=== PATIENT | male | born 1940 | race Caucasian/White ===

== ENCOUNTER → 2016-11-03 | Outpatient (CLI) | payer MEDICARE, OTHER ==
[~2016-11-03] VITALS: Ht 175.3 cm; Wt 121.6 kg
[~2016-11-03] MED LIST: ADV100INH INH; ALTA1CAP2 PO; ASPI81CH PO; BISO10TA PO; DEMA20TA6 PO; FIBEPOW PO; KLOR1CAP PO; NS 1,000 ML IV SCH; PROPOFOL 200 MG/20 ML VIAL As Ordered ONE; PROTPAK PO; ROSU10TA PO; TEST5GEL TOP; VIAG100T PO
--- NOTE | 2016-11-03 10:38 | ROOR ---
Patient Name: Jesus Gomez Procedure Date: 11/03/2016 10:20 AM Date of : 1940 Age: 76 Room: [facility] Gender: Male Note Status: Finalized Procedure: Colonoscopy Indications: Screening for colorectal malignant neoplasm Providers: Alvaro Frank Jr, MD Referring MD: Dustin Ferrer MD Requesting Provider: Medicines: Propofol per Anesthesia Complications: No immediate complications. Procedure: Pre-Anesthesia Assessment: - Prior to the procedure, a History and Physical was performed, and patient medications and allergies were reviewed. The patient is competent. The risks and benefits of the procedure and the sedation options and risks were discussed with the patient. All questions were answered and informed consent was obtained. Patient identification and proposed procedure were verified by the physician and the nurse in the pre-procedure area and in the procedure room. Mental Status Examination: alert and oriented. Airway Examination: normal oropharyngeal airway and neck mobility. Respiratory Examination: clear to auscultation. CV Examination: normal. ASA Grade Assessment: II - A patient with mild systemic disease. After reviewing the risks and benefits, the patient was deemed in satisfactory condition to undergo the procedure. The anesthesia plan was to use moderate sedation / analgesia (conscious sedation). Immediately prior to administration of medications, the patient was re-assessed for adequacy to receive sedatives. The heart rate, respiratory rate, oxygen saturations, blood pressure, adequacy of pulmonary ventilation, and response to care were monitored throughout the procedure. The physical status of the patient was re-assessed after the procedure. The Colonoscope was introduced through the anus and advanced to the cecum, identified by appendiceal orifice and ileocecal valve. The colonoscopy was performed without difficulty. The patient tolerated the procedure well. The quality of the bowel preparation was adequate and good. Findings: The perianal and digital rectal examinations were normal. Pertinent negatives include normal sphincter tone, no palpable rectal lesions and no anal lesion or abnormality was detected. Multiple small and large-mouthed diverticula were found in the sigmoid colon. Three polyps were found in the sigmoid colon, ascending colon and cecum. The polyps were diminutive in size. These polyps were removed with a jumbo cold forceps. Resection and retrieval were complete. The rectum, recto-sigmoid colon, descending colon, transverse colon, appendiceal orifice and ileocecal valve appeared normal. Impression: - Diverticulosis in the sigmoid colon. - Three diminutive polyps in the sigmoid colon, in the ascending colon and in the cecum, removed with a jumbo cold forceps. Resected and retrieved. - The rectum, recto-sigmoid colon, descending colon, transverse colon, appendiceal orifice and ileocecal valve are normal. Recommendation: - Discharge patient to home (ambulatory). - Repeat colonoscopy in 5-10 years for surveillance based on pathology results. Alvaro Frank MD Alvaro Frank Jr, MD 11/03/2016 10:38:05 AM This report has been signed electronically. Number of Addenda: 0 Note Initiated On: 11/03/2016 10:20 AM Estimated Blood Loss: Estimated blood loss: none.
[2016-11-03 10:55] VITALS: BP 124/71
== END | disposition home or self-care (01) ==
LOC: M OPP 09:20
PROVIDERS: ATTEND Surgery
DX: Z12.11 Encounter for screening for malignant neoplasm of colon (principal); D12.2 Benign neoplasm of ascending colon; D12.5 Benign neoplasm of sigmoid colon; I25.10 Atherosclerotic heart disease of native coronary artery without angina pectoris; E78.00 Pure hypercholesterolemia, unspecified; J45.909 Unspecified asthma, uncomplicated; I48.91 Unspecified atrial fibrillation; N40.0 Benign prostatic hyperplasia without lower urinary tract symptoms; M19.90 Unspecified osteoarthritis, unspecified site; I50.9 Heart failure, unspecified; G47.30 Sleep apnea, unspecified; R06.83 Snoring; R12 Heartburn; K57.92 Diverticulitis of intestine, part unspecified, without perforation or abscess without bleeding; R23.3 Spontaneous ecchymoses; Z95.0 Presence of cardiac pacemaker; Z88.8 Allergy status to other drugs, medicaments and biological substances; Z79.82 Long term (current) use of aspirin; Z79.51 Long term (current) use of inhaled steroids; Z79.899 Other long term (current) drug therapy

== ENCOUNTER → 2017-02-15 | Outpatient (CLI) | payer MEDICARE, OTHER ==
[~2017-02-15] MED LIST changes: +CRES10TA32 PO; -NS 1,000 ML IV SCH; -PROPOFOL 200 MG/20 ML VIAL As Ordered ONE; -ROSU10TA PO
[2017-02-15 13:26] LABS: MEAN CORPUSCULAR HEMOGLOBIN 29.9 pg (27.0-33.0); MEAN CORPUSCULAR HGB CONC 32.8 g/dl (32.0-36.5); MEAN CORPUSCULAR VOLUME 91.3 fl (80.0-96.0); RED CELL DISTRIBUTION WIDTH 13.6 % (11.5-14.5); WHITE BLOOD COUNT 6.2 K/mm3 (4.0-10.0)
[2017-02-15 13:43] LABS: ALBUMIN 3.6 GM/DL (3.2-5.2); ALBUMIN/GLOBULIN RATIO 1.29 (1.00-1.93); ALKALINE PHOSPHATASE 80 U/L (45-117); ALT/SGPT 20 U/L (12-78); ANION GAP 3 MEQ/L (8-16); AST/SGOT 19 U/L (15-37); BLOOD UREA NITROGEN 16 MG/DL (7-18); CARBON DIOXIDE LEVEL 33 MEQ/L (21-32); CHLORIDE LEVEL 105 MEQ/L (98-107); CHOLESTEROL LEVEL 149 MG/DL (<200); CREATININE FOR GFR 0.89 MG/DL (0.70-1.30); FREE T4 1.06 NG/DL (0.76-1.46); GLOMERULAR FILTRATION RATE > 60.0 (>42); GLUCOSE, FASTING 100 MG/DL (83-110); SODIUM LEVEL 141 MEQ/L (136-145); TOTAL PROTEIN 6.4 GM/DL (6.4-8.2); TRIGLYCERIDES LEVEL 86 MG/DL (<150)
== END ==
LOC: M WUC 09:22
PROVIDERS: ATTEND Family Medicine
DX: E29.1 Testicular hypofunction (principal); I11.0 Hypertensive heart disease with heart failure; E78.2 Mixed hyperlipidemia

== ENCOUNTER → 2017-03-28 | Outpatient (CLI) | payer MEDICARE, OTHER ==
--- NOTE | 2017-03-28 10:09 | REP ---
CHEST X-RAY: Two views. HISTORY: Preoperative testing. Comparison chest x-ray July 10, 2009. FINDINGS: A bipolar pacemaker remains in the right heart via the left side. The heart is mildly enlarged. This is unchanged. There is some linear fibrosis in the left base. Pleural angles are sharp. Lung dia are otherwise clear. The aorta is calcific and tortuous. There are degenerative changes in the thoracic spine. IMPRESSION: Mild cardiomegaly with pacemaker. Linear fibrosis left base. Otherwise no acute disease. Signed by Jacky Jauregui MD 03/28/2017 03:43 P
[2017-03-28 13:41] LABS: ANION GAP 6 MEQ/L (8-16); BLOOD UREA NITROGEN 24 MG/DL (7-18); CALCIUM LEVEL 8.9 MG/DL (8.8-10.2); CARBON DIOXIDE LEVEL 29 MEQ/L (21-32); CHLORIDE LEVEL 105 MEQ/L (98-107); GLOMERULAR FILTRATION RATE > 60.0 (>42); GLUCOSE, FASTING 98 MG/DL (83-110); POTASSIUM SERUM 4.3 MEQ/L (3.5-5.1); SODIUM LEVEL 140 MEQ/L (136-145)
== END ==
LOC: M ADAMS 09:24
PROVIDERS: ATTEND Ophthalmology
DX: H25.12 Age-related nuclear cataract, left eye (principal); I11.9 Hypertensive heart disease without heart failure; I50.9 Heart failure, unspecified

== ENCOUNTER → 2017-07-13 | Outpatient (REF) | payer MEDICARE, OTHER ==
[2017-07-13 20:28] LABS: MEAN CORPUSCULAR HEMOGLOBIN 29.2 pg (27.0-33.0); MEAN CORPUSCULAR HGB CONC 32.7 g/dl (32.0-36.5); MEAN CORPUSCULAR VOLUME 89.3 fl (80.0-96.0); PLATELET COUNT, AUTOMATED 254 10^3/uL (150-450); WHITE BLOOD COUNT 5.9 10^3/uL (4.0-10.0)
[2017-07-13 20:44] LABS: FOLATE 10.3 NG/ML (>5.4); VITAMIN B12 LEVEL 420 PG/ML (247-911)
[2017-07-13 20:45] LABS: ALBUMIN 3.9 GM/DL (3.2-5.2); ALBUMIN/GLOBULIN RATIO 1.39 (1.00-1.93); ALKALINE PHOSPHATASE 94 U/L (45-117); ALT/SGPT 19 U/L (12-78); ANION GAP 6 MEQ/L (8-16); AST/SGOT 20 U/L (15-37); BILIRUBIN,TOTAL 1.3 MG/DL (0.2-1.0); BLOOD UREA NITROGEN 16 MG/DL (7-18); CALCIUM LEVEL 8.9 MG/DL (8.8-10.2); CARBON DIOXIDE LEVEL 34 MEQ/L (21-32); CHLORIDE LEVEL 100 MEQ/L (98-107); FREE T4 1.02 NG/DL (0.76-1.46); GLOMERULAR FILTRATION RATE > 60.0 (>42); GLUCOSE, FASTING 87 MG/DL (83-110); POTASSIUM SERUM 4.4 MEQ/L (3.5-5.1); SODIUM LEVEL 140 MEQ/L (136-145); TOTAL PROTEIN 6.7 GM/DL (6.4-8.2)
== END ==
LOC: M SFHCADAM 16:04
PROVIDERS: ATTEND Family Medicine
DX: R06.09 Other forms of dyspnea (principal); R73.03 Prediabetes; M79.1 Myalgia

== ENCOUNTER → 2017-07-13 | Outpatient (CLI) | payer MEDICARE, OTHER ==
--- NOTE | 2017-07-13 17:20 | REP ---
PA and lateral chest: Comparisons are 03/28/2017 11/23/2014. There are no acute infiltrates or effusions. The right hemidiaphragm is chronically elevated lobulated, likely eventration, unchanged. There is chronic parenchymal scarring in the left costophrenic angle, unchanged from 03/28/2017 but not present on the 05/07/2015. Cardiac size is upper normal, unchanged. There is a dual-chamber pacemaker, unchanged. The vivienne, mediastinum, and bony thorax are unchanged R, for patient age. Impression: There are no acute cardiopulmonary findings. There are chronic stable findings as described Signed by Jarrett Villavicencio MD 07/13/2017 05:12 P
== END ==
LOC: M ADAMS 16:12
PROVIDERS: ATTEND Family Medicine
DX: R06.09 Other forms of dyspnea (principal); R73.03 Prediabetes; M79.1 Myalgia; E29.1 Testicular hypofunction
CPT/HCPCS: 71020; 80053; 82550; 82607; 82746; 83036; 83880; 84439; 84443; 85027; 93005; G0463

== ENCOUNTER → 2017-08-17 | Outpatient (CLI) | payer MEDICARE, OTHER ==
[2017-08-17 13:25] LABS: MEAN CORPUSCULAR HEMOGLOBIN 29.8 pg (27.0-33.0); MEAN CORPUSCULAR VOLUME 90.2 fl (80.0-96.0); PLATELET COUNT, AUTOMATED 258 10^3/uL (150-450); RED CELL DISTRIBUTION WIDTH 14.4 % (11.5-14.5); WHITE BLOOD COUNT 4.8 10^3/uL (4.0-10.0)
[2017-08-17 13:50] LABS: ALBUMIN 3.5 GM/DL (3.2-5.2); ALBUMIN/GLOBULIN RATIO 1.25 (1.00-1.93); ALKALINE PHOSPHATASE 87 U/L (45-117); ALT/SGPT 15 U/L (12-78); ANION GAP 5 MEQ/L (8-16); AST/SGOT 20 U/L (7-37); BILIRUBIN,TOTAL 1.2 MG/DL (0.2-1.0); BLOOD UREA NITROGEN 17 MG/DL (7-18); CALCIUM LEVEL 8.8 MG/DL (8.8-10.2); CARBON DIOXIDE LEVEL 31 MEQ/L (21-32); CHLORIDE LEVEL 105 MEQ/L (98-107); CHOLESTEROL LEVEL 244 MG/DL (<200); CREATININE FOR GFR 0.83 MG/DL (0.70-1.30); GLOMERULAR FILTRATION RATE > 60.0 (>42); GLUCOSE, FASTING 103 MG/DL (83-110); POTASSIUM SERUM 4.6 MEQ/L (3.5-5.1); SODIUM LEVEL 141 MEQ/L (136-145); TOTAL PROTEIN 6.3 GM/DL (6.4-8.2); TRIGLYCERIDES LEVEL 89 MG/DL (<150)
== END ==
LOC: M WUC 08:50
PROVIDERS: ATTEND Family Medicine
DX: E29.1 Testicular hypofunction (principal); I10 Essential (primary) hypertension; R73.03 Prediabetes

== ENCOUNTER → 2017-11-20 | Outpatient (CLI) | payer MEDICARE, OTHER ==
[2017-11-20 09:45] LABS: ALBUMIN 3.7 GM/DL (3.2-5.2); ALBUMIN/GLOBULIN RATIO 1.19 (1.00-1.93); ALKALINE PHOSPHATASE 92 U/L (45-117); ALT/SGPT 14 U/L (12-78); ANION GAP 6 MEQ/L (8-16); AST/SGOT 21 U/L (7-37); BILIRUBIN,TOTAL 1.1 MG/DL (0.2-1.0); BLOOD UREA NITROGEN 15 MG/DL (7-18); CALCIUM LEVEL 8.8 MG/DL (8.8-10.2); CARBON DIOXIDE LEVEL 33 MEQ/L (21-32); CHLORIDE LEVEL 104 MEQ/L (98-107); CHOLESTEROL LEVEL 198 MG/DL (<200); CHOLESTEROL RISK RATIO 4.304 (<5); CPK CREATINE PHOSPHOKINASE 127 U/L (39-308); CREATININE FOR GFR 0.94 MG/DL (0.70-1.30); GLOMERULAR FILTRATION RATE > 60.0 (>42); GLUCOSE, FASTING 96 MG/DL (70-100); HDL CHOLESTEROL 46 MG/DL (>40); LDL CHOLESTEROL 124.2 MG/DL (<100); NON-HDL-C 152 MG/DL; POTASSIUM SERUM 4.7 MEQ/L (3.5-5.1); SODIUM LEVEL 143 MEQ/L (136-145); TOTAL PROTEIN 6.8 GM/DL (6.4-8.2); TRIGLYCERIDES LEVEL 139 MG/DL (<150)
== END ==
LOC: M WUC 08:12
DX: E78.2 Mixed hyperlipidemia (principal); Z78.9 Other specified health status
CPT/HCPCS: 82550

== ENCOUNTER → 2018-04-09 | Outpatient (CLI) | payer MEDICARE, OTHER ==
[2018-04-09 13:26] LABS: ALBUMIN 3.5 GM/DL (3.2-5.2); ALBUMIN/GLOBULIN RATIO 1.13 (1.00-1.93); ALKALINE PHOSPHATASE 83 U/L (45-117); ALT/SGPT 20 U/L (12-78); ANION GAP 6 MEQ/L (8-16); AST/SGOT 24 U/L (7-37); BILIRUBIN,TOTAL 1.2 MG/DL (0.2-1.0); BLOOD UREA NITROGEN 17 MG/DL (7-18); CALCIUM LEVEL 8.8 MG/DL (8.8-10.2); CARBON DIOXIDE LEVEL 32 MEQ/L (21-32); CHLORIDE LEVEL 103 MEQ/L (98-107); CHOLESTEROL LEVEL 187 MG/DL (<200); CHOLESTEROL RISK RATIO 4.065 (<5); CREATININE FOR GFR 0.95 MG/DL (0.70-1.30); GLOMERULAR FILTRATION RATE > 60.0 (>42); GLUCOSE, FASTING 109 MG/DL (70-100); HDL CHOLESTEROL 46 MG/DL (>40); NON-HDL-C 141 MG/DL; POTASSIUM SERUM 4.5 MEQ/L (3.5-5.1); SODIUM LEVEL 141 MEQ/L (136-145); TOTAL PROTEIN 6.6 GM/DL (6.4-8.2); TRIGLYCERIDES LEVEL 105 MG/DL (<150)
== END ==
LOC: M WUC 08:40
DX: E78.2 Mixed hyperlipidemia (principal); Z78.9 Other specified health status
CPT/HCPCS: 80053

== ENCOUNTER → 2018-09-04 | Outpatient (REF) | payer MEDICARE, OTHER ==
[2018-09-04 20:03] LABS: ALBUMIN 3.8 GM/DL (3.2-5.2); ALT/SGPT 17 U/L (12-78); BILIRUBIN,TOTAL 0.8 MG/DL (0.2-1.0); BLOOD UREA NITROGEN 20 MG/DL (7-18); CALCIUM LEVEL 8.9 MG/DL (8.8-10.2); CARBON DIOXIDE LEVEL 33 MEQ/L (21-32); CHLORIDE LEVEL 100 MEQ/L (98-107); CHOLESTEROL LEVEL 217 MG/DL (<200); CHOLESTEROL RISK RATIO 4.428 (<5); CREATININE FOR GFR 1.02 MG/DL (0.70-1.30); FREE T4 0.98 NG/DL (0.76-1.46); GLOMERULAR FILTRATION RATE > 60.0 (>42); GLUCOSE, FASTING 134 MG/DL (70-100); HDL CHOLESTEROL 49 MG/DL (>40); LDL CHOLESTEROL 136 MG/DL (<100); NON-HDL-C 168 MG/DL; SODIUM LEVEL 138 MEQ/L (136-145); THYROID STIMULATING HORMONE 0.956 uIU/ML (0.358-3.740); TRIGLYCERIDES LEVEL 160 MG/DL (<150)
[2018-09-04 20:04] LABS: HEMATOCRIT 47.1 % (42.0-52.0); HEMOGLOBIN 15.2 g/dl (13.5-17.5); MEAN CORPUSCULAR HEMOGLOBIN 29.2 pg (27.0-33.0); MEAN CORPUSCULAR HGB CONC 32.3 g/dl (32.0-36.5); MEAN CORPUSCULAR VOLUME 90.4 fl (80.0-96.0); PLATELET COUNT, AUTOMATED 271 10^3/uL (150-450); RED BLOOD COUNT 5.21 10^6/uL (4.30-6.10); WHITE BLOOD COUNT 6.4 10^3/uL (4.0-10.0)
== END ==
LOC: M SFHCADAM 16:19
PROVIDERS: ATTEND Family Medicine
DX: I11.0 Hypertensive heart disease with heart failure (principal); E78.2 Mixed hyperlipidemia; I48.0 Paroxysmal atrial fibrillation

== ENCOUNTER → 2019-01-07 | Outpatient (CLI) | payer MEDICARE, OTHER ==
[~2019-01-07] MED LIST changes: -ASPI81CH PO; +ASPI81CH49 PO; -BISO10TA PO; +BISO10TA13 PO; +CRES10TA PO; -CRES10TA32 PO
[2019-01-07 12:52] LABS: HEMOGLOBIN 13.9 g/dl (13.5-17.5); MEAN CORPUSCULAR HEMOGLOBIN 29.1 pg (27.0-33.0); MEAN CORPUSCULAR HGB CONC 32.3 g/dl (32.0-36.5); PLATELET COUNT, AUTOMATED 256 10^3/uL (150-450); RED BLOOD COUNT 4.78 10^6/uL (4.30-6.10); WHITE BLOOD COUNT 6.1 10^3/uL (4.0-10.0)
[2019-01-07 13:00] LABS: ALBUMIN 3.7 GM/DL (3.2-5.2); ALT/SGPT 13 U/L (12-78); BILIRUBIN,TOTAL 1.3 MG/DL (0.2-1.0); BLOOD UREA NITROGEN 14 MG/DL (7-18); CALCIUM LEVEL 8.9 MG/DL (8.8-10.2); CARBON DIOXIDE LEVEL 32 MEQ/L (21-32); CHLORIDE LEVEL 105 MEQ/L (98-107); CHOLESTEROL LEVEL 207 MG/DL (<200); CREATININE FOR GFR 0.93 MG/DL (0.70-1.30); FREE T4 1.16 NG/DL (0.76-1.46); GLOMERULAR FILTRATION RATE > 60.0 (>42); GLUCOSE, FASTING 103 MG/DL (70-100); HDL CHOLESTEROL 45 MG/DL (>40); LDL CHOLESTEROL 139 MG/DL (<100); NON-HDL-C 162 MG/DL; POTASSIUM SERUM 4.9 MEQ/L (3.5-5.1); SODIUM LEVEL 140 MEQ/L (136-145); THYROID STIMULATING HORMONE 0.784 uIU/ML (0.358-3.740); TOTAL PROTEIN 6.2 GM/DL (6.4-8.2); TRIGLYCERIDES LEVEL 114 MG/DL (<150)
[2019-01-07 13:01] LABS: TESTOSTERONE 344 NG/DL (241-827)
[2019-01-07 14:42] LABS: HEMOGLOBIN A1c 6.1 %
== END ==
LOC: M WUC 08:31
PROVIDERS: ATTEND Family Medicine
DX: R53.83 Other fatigue (principal); R73.03 Prediabetes; I11.0 Hypertensive heart disease with heart failure; E78.2 Mixed hyperlipidemia; E29.1 Testicular hypofunction

== ENCOUNTER → 2019-04-05 | Outpatient (CLI) | payer MEDICARE, OTHER ==
--- NOTE | 2019-04-05 20:32 | REP ---
CT CHEST WITHOUT IV CONTRAST: CT chest performed without IV contrast. Sagittal and coronal reconstruction images are performed. The lungs show minor scattered fibrotic changes. No other abnormal lung opacities are seen. There is mild atherosclerotic calcification of the thoracic aorta without aneurysm. The heart is not enlarged. There is a cyst projecting off the posterior right lobe of thyroid measuring 2.7 cm in diameter. Small calcified lymph node is seen in the right paratracheal region. There are other subcentimeter mediastinal lymph nodes without evidence of significant mediastinal, hilar or chest wall lymphadenopathy. There is no pleural or pericardial effusion. Small calcified right hilar lymph nodes are also noted. Left dual lead pacemaker is noted. There are degenerative changes of the spine. IMPRESSION: Chronic findings as discussed in detail above. No significant abnormal lung opacities. No suspicious adenopathy. Electronically Signed by Jarrett Pride MD 04/07/2019 09:11 P
--- NOTE | 2019-04-05 20:46 | REP ---
CT ABDOMEN AND PELVIS WITHOUT CONTRAST: CT abdomen and pelvis performed without oral or IV contrast. Sagittal and coronal reconstruction images are performed. Evaluation for underlying visceral organ mass is limited without IV contrast. The liver demonstrates no gross mass. The gallbladder is only mildly distended. No gross biliary dilatation is seen. The spleen is normal in size with no gross abnormality. Adrenals, pancreas and kidneys are also grossly unremarkable. No renal, ureteral or bladder calculus is seen and there is no hydroureteronephrosis. There is mild atherosclerotic calcification of the abdominal aorta without aneurysm. There is no evidence of adenopathy. I see no free air or free fluid. I see no bowel wall thickening. There is no evidence of appendicitis. There is sigmoid diverticulosis without acute diverticulitis. There is diffuse bladder wall thickening which is nonspecific. I cannot exclude cystitis. Bladder diverticulum is seen on the left posteriorly. Small inguinal hernias contain fat. IMPRESSION: No definite visceral organ mass and no evidence of adenopathy. Sigmoid diverticulosis without acute bowel inflammation. Small bilateral inguinal hernias contain fat. Mild diffuse bladder wall thickening could indicate bladder wall hypertrophy or cystitis. There is a bladder diverticulum at the left base of the bladder. Electronically Signed by Jarrett Pride MD 04/07/2019 09:11 P
== END ==
LOC: M RAD 18:04
PROVIDERS: ATTEND Family Medicine
DX: R63.4 Abnormal weight loss (principal); R17 Unspecified jaundice; R91.8 Other nonspecific abnormal finding of lung field

== ENCOUNTER 2019-05-23 11:23 | Day surgery (SDC) | payer MEDICARE, OTHER ==
[~2019-05-23] VITALS: Ht 175.3 cm; Wt 108.0 kg
[~2019-05-23 11:23] MED LIST changes: +NS 1,000 ML IV ONE; +TORS10TA3 PO
[2019-05-23] MEDS ORDERED: BAYE325T12 PO (13:31)
[2019-05-23] MEDS ORDERED: LIDOCAINE 2% INJ 100 MG/5 ML SDV (FOR ANES.) As Ordered ONE (13:44)
[2019-05-23] MEDS ORDERED: PROPOFOL 200 MG/20 ML VIAL As Ordered ONE ×2 (13:44→14:49)
--- NOTE | 2019-05-23 14:25 | ROOR ---
Patient Name: Jesus Gomez Procedure Date: 05/23/2019 2:07 PM Date of : 1940 Age: 78 Room: [facility] Gender: Male Note Status: Finalized Procedure: Upper GI endoscopy Indications: Suspected esophageal reflux Providers: Alvaro Frank Jr, MD Referring MD: Dustin Ferrer MD Requesting Provider: Medicines: Propofol per Anesthesia Complications: No immediate complications. Procedure: Pre-Anesthesia Assessment: - Prior to the procedure, a History and Physical was performed, and patient medications and allergies were reviewed. The patient is competent. The risks and benefits of the procedure and the sedation options and risks were discussed with the patient. All questions were answered and informed consent was obtained. Patient identification and proposed procedure were verified by the physician and the nurse in the pre-procedure area and in the procedure room. Mental Status Examination: alert and oriented. Airway Examination: normal oropharyngeal airway and neck mobility. Respiratory Examination: clear to auscultation. CV Examination: normal. ASA Grade Assessment: II - A patient with mild systemic disease. After reviewing the risks and benefits, the patient was deemed in satisfactory condition to undergo the procedure. The anesthesia plan was to use moderate sedation / analgesia (conscious sedation). Immediately prior to administration of medications, the patient was re-assessed for adequacy to receive sedatives. The heart rate, respiratory rate, oxygen saturations, blood pressure, adequacy of pulmonary ventilation, and response to care were monitored throughout the procedure. The physical status of the patient was re-assessed after the procedure. The Endoscope was introduced through the mouth, and advanced to the second part of duodenum. The upper GI endoscopy was accomplished without difficulty. The patient tolerated the procedure well. Findings: The upper third of the esophagus, middle third of the esophagus and lower third of the esophagus were normal. A small hiatal hernia was present. There were esophageal mucosal changes suspicious for short-segment Garcia's esophagus present at the gastroesophageal junction. Biopsies were taken with a cold forceps for histology. The cardia and gastric body were normal. Scattered moderate inflammation characterized by congestion (edema), erythema, friability and shallow ulcerations was found in the gastric antrum and in the prepyloric region of the stomach. Biopsies were taken with a cold forceps for histology. The duodenal bulb, first portion of the duodenum and second portion of the duodenum were normal. Impression: - Normal upper third of esophagus, middle third of esophagus and lower third of esophagus. - Small hiatal hernia. 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 Biopsied. - Normal cardia and gastric body. - Gastritis. Biopsied. - Normal duodenal bulb, first portion of the duodenum and second portion of the duodenum. Recommendation: - Discharge patient to home (ambulatory). - Return to my office as previously scheduled. Alvaro Frank MD Alvaro Frank Jr, MD 05/23/2019 2:25:33 PM Electronically signed by Alvaro Frank Jr, MD Number of Addenda: 0 Note Initiated On: 05/23/2019 2:07 PM Estimated Blood Loss: Estimated blood loss: none.
--- NOTE | 2019-05-23 15:05 | ROOR ---
Patient Name: Jesus Gomez Procedure Date: 05/23/2019 2:07 PM Date of : 1940 Age: 78 Room: [facility] Gender: Male Note Status: Finalized Procedure: Colonoscopy Indications: High risk colon cancer surveillance: Personal history of colonic polyps Providers: Alvaro Frank Jr, MD Referring MD: Dustin Ferrer MD Requesting Provider: Medicines: Propofol per Anesthesia Complications: No immediate complications. Procedure: Pre-Anesthesia Assessment: - Prior to the procedure, a History and Physical was performed, and patient medications and allergies were reviewed. The patient is competent. The risks and benefits of the procedure and the sedation options and risks were discussed with the patient. All questions were answered and informed consent was obtained. Patient identification and proposed procedure were verified by the physician and the nurse in the pre-procedure area and in the procedure room. Mental Status Examination: alert and oriented. Airway Examination: normal oropharyngeal airway and neck mobility. Respiratory Examination: clear to auscultation. CV Examination: normal. ASA Grade Assessment: II - A patient with mild systemic disease. After reviewing the risks and benefits, the patient was deemed in satisfactory condition to undergo the procedure. The anesthesia plan was to use moderate sedation / analgesia (conscious sedation). Immediately prior to administration of medications, the patient was re-assessed for adequacy to receive sedatives. The heart rate, respiratory rate, oxygen saturations, blood pressure, adequacy of pulmonary ventilation, and response to care were monitored throughout the procedure. The physical status of the patient was re-assessed after the procedure. The Colonoscope was introduced through the anus and advanced to the cecum, identified by appendiceal orifice and ileocecal valve. The colonoscopy was performed without difficulty. The patient tolerated the procedure well. The quality of the bowel preparation was adequate. Findings: The rectum, recto-sigmoid colon and descending colon appeared normal. Many small and large-mouthed diverticula were found in the sigmoid colon. A few small and large-mouthed diverticula were found in the descending colon, transverse colon and ascending colon. Seven polyps were found in the transverse colon and ascending colon. The polyps were small in size. These polyps were removed with a hot snare. Resection was complete, but the polyp tissue was only partially retrieved. Non-bleeding external and internal hemorrhoids were found during endoscopy. The hemorrhoids were Grade II (internal hemorrhoids that prolapse but reduce spontaneously) and Grade III (internal hemorrhoids that prolapse but require manual reduction). Impression: - The rectum, recto-sigmoid colon and descending colon are normal. - Diverticulosis in the sigmoid colon. - Diverticulosis in the descending colon, in the transverse colon and in the ascending colon. - Seven small polyps in the transverse colon and in the ascending colon, removed with a hot snare. Complete resection. Partial retrieval. - Non-bleeding external and internal hemorrhoids. Recommendation: - Repeat colonoscopy in 5 years for surveillance. Alvrao Frank MD Alvaro Frank Jr, MD 05/23/2019 3:04:22 PM Electronically signed by Alvaro Frank Jr, MD Number of Addenda: 0 Note Initiated On: 05/23/2019 2:07 PM Estimated Blood Loss: Estimated blood loss: none.
[2019-05-23 15:25] VITALS: BP 145/66
== END 2019-05-23 15:33 | disposition home or self-care (01) ==
LOC: M OPP 11:23
PROVIDERS: ATTEND Surgery
DX: Z12.11 Encounter for screening for malignant neoplasm of colon (principal); Z86.010 Personal history of colon polyps; K64.2 Third degree hemorrhoids; D21.3 Benign neoplasm of connective and other soft tissue of thorax; D12.2 Benign neoplasm of ascending colon; K57.30 Diverticulosis of large intestine without perforation or abscess without bleeding; K22.8 Other specified diseases of esophagus; K44.9 Diaphragmatic hernia without obstruction or gangrene; K29.70 Gastritis, unspecified, without bleeding; G47.30 Sleep apnea, unspecified; I50.9 Heart failure, unspecified; Z95.0 Presence of cardiac pacemaker; Z79.899 Other long term (current) drug therapy; Z79.82 Long term (current) use of aspirin; Z88.8 Allergy status to other drugs, medicaments and biological substances

== ENCOUNTER → 2019-06-27 | Outpatient (CLI) | payer MEDICARE, OTHER ==
[~2019-06-27] MED LIST changes: +BAYE325T12 PO; -NS 1,000 ML IV ONE
[2019-06-27 12:07] LABS: BASO # 0.1 10^3/uL (0.0-0.2); BASO % 1.3 % (0.0-1.0); EOS # 0.2 10^3/uL (0.0-0.5); EOS % 4.1 % (0.0-3.0); HEMATOCRIT 42.3 % (42.0-52.0); HEMOGLOBIN 13.7 g/dl (13.5-17.5); LYMPH # 2.4 10^3/uL (1.5-5.0); LYMPH % 51.2 % (24.0-44.0); MEAN CORPUSCULAR HEMOGLOBIN 29.8 pg (27.0-33.0); MEAN CORPUSCULAR HGB CONC 32.4 g/dl (32.0-36.5); MEAN CORPUSCULAR VOLUME 92.2 fl (80.0-96.0); MONO # 0.7 10^3/uL (0.0-0.8); MONO % 14.9 % (0.0-5.0); NEUTROPHILS # 1.3 10^3/uL (1.5-8.5); NEUTROPHILS % 28.3 % (36.0-66.0); PLATELET COUNT, AUTOMATED 221 10^3/uL (150-450); RED BLOOD COUNT 4.59 10^6/uL (4.30-6.10); WHITE BLOOD COUNT 4.6 10^3/uL (4.0-10.0)
[2019-06-27 12:23] LABS: BLOOD UREA NITROGEN 11 MG/DL (7-18); CALCIUM LEVEL 8.7 MG/DL (8.8-10.2); CARBON DIOXIDE LEVEL 34 MEQ/L (21-32); CHLORIDE LEVEL 104 MEQ/L (98-107); CREATININE FOR GFR 0.91 MG/DL (0.70-1.30); GLOMERULAR FILTRATION RATE > 60.0 (>42); GLUCOSE, FASTING 95 MG/DL (70-100); POTASSIUM SERUM 4.3 MEQ/L (3.5-5.1); SODIUM LEVEL 142 MEQ/L (136-145); TESTOSTERONE 482 NG/DL (241-827)
[2019-06-27 12:24] LABS: ALBUMIN 3.4 GM/DL (3.2-5.2); ALT/SGPT 18 U/L (12-78); BILIRUBIN,TOTAL 1.2 MG/DL (0.2-1.0); FREE T4 1.07 NG/DL (0.76-1.46)
[2019-06-27 12:35] LABS: ERYTHROCYTE SEDIMENTATION RATE 7 mm/hr (0-20)
== END ==
LOC: M WUC 08:39
PROVIDERS: ATTEND Family Medicine
DX: R63.4 Abnormal weight loss (principal); R53.83 Other fatigue; I48.0 Paroxysmal atrial fibrillation; E29.1 Testicular hypofunction

== ENCOUNTER → 2019-07-11 | Outpatient (REF) | payer MEDICARE, OTHER ==
[2019-07-11 12:55] LABS: BASO # 0.1 10^3/uL (0.0-0.2); BASO % 1.4 % (0.0-1.0); EOS # 0.1 10^3/uL (0.0-0.5); EOS % 2.2 % (0.0-3.0); HEMATOCRIT 44.4 % (42.0-52.0); HEMOGLOBIN 14.4 g/dl (13.5-17.5); LYMPH % 34.1 % (24.0-44.0); MEAN CORPUSCULAR HEMOGLOBIN 29.4 pg (27.0-33.0); MEAN CORPUSCULAR HGB CONC 32.4 g/dl (32.0-36.5); MEAN CORPUSCULAR VOLUME 90.8 fl (80.0-96.0); MONO # 0.9 10^3/uL (0.0-0.8); MONO % 14.5 % (0.0-5.0); NEUTROPHILS # 2.8 10^3/uL (1.5-8.5); NEUTROPHILS % 47.6 % (36.0-66.0); PLATELET COUNT, AUTOMATED 260 10^3/uL (150-450); RED BLOOD COUNT 4.89 10^6/uL (4.30-6.10); WHITE BLOOD COUNT 5.9 10^3/uL (4.0-10.0)
[2019-07-11 13:10] LABS: TOTAL PROTEIN 6.9 GM/DL (6.4-8.2)
[2019-07-13 08:39] LABS: FREE KAPPA LIGHT CHAINS SERUM 22.5 mg/L (3.3-19.4); FREE KAPPA LIGHT CHAINS URINE 19.6 mg/L (1.35-24.19); FREE LAMBDA LIGHT CHAINS SERUM 14.5 mg/L (5.7-26.3); FREE LAMBDA LIGHT CHAINS URINE 13.5 mg/L (0.24-6.66); KAPPA/LAMBDA RATIO SERUM 1.55 (0.26-1.65); KAPPA/LAMBDA RATIO URINE 1.45 (2.04-10.37)
[2019-07-16 13:38] LABS: ALBUMIN 4.18 GM/DL (3.29-5.55); ALBUMIN % 60.6 % (55.8-66.1); ALPHA-1-GLOBULIN % 4.7 % (2.9-4.9); ALPHA-1-GLOBULINS 0.32 GM/DL (0.17-0.41); ALPHA-2-GLOBULINS 0.69 GM/DL (0.42-0.99); BETA-1-GLOBULINS 0.39 GM/DL (0.28-0.60); BETA-1-GLOBULINS % 5.7 % (4.7-7.2); BETA-2-GLOBULINS 0.35 GM/DL (0.19-0.55)
[2019-07-16 13:39] LABS: GAMMA GLOBULINS 0.97 GM/DL (0.65-1.58)
== END ==
LOC: M SFHCADAM 09:56
PROVIDERS: ATTEND Family Medicine
DX: D72.820 Lymphocytosis (symptomatic) (principal); R63.4 Abnormal weight loss
CPT/HCPCS: 83883; 84165; 85025; 90682; G0008; G0463

== ENCOUNTER 2019-09-22 20:17 | Emergency (ER) | payer MEDICARE, OTHER ==
[~2019-09-22] VITALS: Ht 175.3 cm; Wt 105.5 kg
[2019-09-22 20:43] LABS: BASO # 0.1 10^3/uL (0.0-0.2); BASO % 1.1 % (0.0-1.0); EOS # 0.2 10^3/uL (0.0-0.5); EOS % 2.7 % (0.0-3.0); HEMATOCRIT 42.7 % (42.0-52.0); HEMOGLOBIN 13.7 g/dl (13.5-17.5); LYMPH # 3.1 10^3/uL (1.5-5.0); LYMPH % 47.3 % (24.0-44.0); MEAN CORPUSCULAR HEMOGLOBIN 28.8 pg (27.0-33.0); MEAN CORPUSCULAR HGB CONC 32.1 g/dl (32.0-36.5); MEAN CORPUSCULAR VOLUME 89.7 fl (80.0-96.0); MONO # 0.9 10^3/uL (0.0-0.8); MONO % 12.9 % (0.0-5.0); NEUTROPHILS # 2.4 10^3/uL (1.5-8.5); NEUTROPHILS % 35.8 % (36.0-66.0); PLATELET COUNT, AUTOMATED 206 10^3/uL (150-450); RED BLOOD COUNT 4.76 10^6/uL (4.30-6.10); WHITE BLOOD COUNT 6.6 10^3/uL (4.0-10.0)
[2019-09-22] MEDS ORDERED: FLUT1BLS4 (20:53)
[2019-09-22] MEDS ORDERED: PRAV10TA3 (20:53)
[2019-09-22] MEDS ORDERED: TAMS1CAP17 (20:53)
[2019-09-22 21:07] LABS: BLOOD UREA NITROGEN 24 MG/DL (7-18); CALCIUM LEVEL 8.8 MG/DL (8.8-10.2); CARBON DIOXIDE LEVEL 30 MEQ/L (21-32); CHLORIDE LEVEL 105 MEQ/L (98-107); CK-MB VALUE MASS 2.3 NG/ML (<3.6); CPK CREATINE PHOSPHOKINASE 137 U/L (39-308); CREATININE FOR GFR 0.93 MG/DL (0.70-1.30); GLOMERULAR FILTRATION RATE > 60.0 (>42); GLUCOSE, FASTING 95 MG/DL (70-100); MB/CK RELATIVE INDEX 1.68 (< OR =4); POTASSIUM SERUM 3.9 MEQ/L (3.5-5.1); SODIUM LEVEL 142 MEQ/L (136-145); TROPONIN I < 0.02 NG/ML (< 0.10)
[2019-09-22] MEDS ORDERED: ISOVUE-370 76% 100ML VIAL (Q9967) As Ordered ONE (21:18)
--- NOTE | 2019-09-22 21:25 | ECGEPIP ---
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
[2019-09-22 21:35] LABS: ALBUMIN 3.5 GM/DL (3.2-5.2); ALT/SGPT 15 U/L (12-78); BILIRUBIN,DIRECT 0.2 MG/DL (0.0-0.2); BILIRUBIN,TOTAL 0.9 MG/DL (0.2-1.0); FREE T4 0.98 NG/DL (0.76-1.46); TOTAL PROTEIN 6.5 GM/DL (6.4-8.2)
--- NOTE | 2019-09-22 22:01 | REPVR ---
PROCEDURE INFORMATION: Exam: CT Angiography Chest With Contrast Exam date and time: 09/22/2019 9:27 PM Age: 79 years old Clinical indication: Chest pain and other: Right scapular pain/ chest pain; Type not specified; Additional info: Chest pain/right scapular pain TECHNIQUE: Imaging protocol: Computed tomographic angiography of the chest with intravenous contrast. 3D rendering: MIP and/or 3D reconstructed images were created by the technologist. Radiation optimization: All CT scans at this facility use at least one of these dose optimization techniques: automated exposure control; mA and/or kV adjustment per patient size (includes targeted exams where dose is matched to clinical indication); or iterative reconstruction. Contrast material: ISOVUE 370; Contrast volume: 100 ml; Contrast route: IV; COMPARISON: CT Chest without contrast 2019-04-05 18:27 FINDINGS: Tubes, catheters and devices: AICD/Pacemaker device is present, and its leads are in appropriate position. Pulmonary arteries: The pulmonary arteries demonstrate mild central enlargement, consistent with mild pulmonary hypertension. Aorta: Unremarkable. No aortic aneurysm. No aortic dissection. Thyroid: Unchanged enlarged, hypodense right thyroid lobe nodule. Appears partially complex, consider ultrasound followup. Lungs: Dependent subsegmental pulmonary atelectasis. Pleural space: Unremarkable. No pneumothorax. No pleural effusion. Heart: Unremarkable. No cardiomegaly. No pericardial effusion. Stomach and bowel: Gastric wall thickening, correlate for gastritis. Partially irregular proximal duodenum, correlate for peptic ulcer disease. Lymph nodes: Unremarkable. No enlarged lymph nodes. Bones/joints: Unremarkable. No acute fracture. Soft tissues: Unremarkable. IMPRESSION: 1. Unchanged enlarged, hypodense right thyroid lobe nodule. Appears partially complex, consider ultrasound followup. 2. Gastric wall thickening, correlate for gastritis. Partially irregular proximal duodenum, correlate for peptic ulcer disease. COMMENT: In patients aged 35 years and older with an incidental thyroid nodule equal to or greater than 1.[address], MRI or extrathyroidal US, further evaluation with dedicated thyroid US is recommended for patients with normal life expectancy and without comorbidities. For smaller nodules without suspicious features, no further evaluation or follow up is recommended. Electronically signed by: Papito Camacho On 09/22/2019 22:01:07 PM
--- NOTE | 2019-09-22 23:01 | REP ---
Clinical: Chest pain . Comparison: 07/13/2017 . Findings: The mediastinum and cardiac silhouette are stable and within normal limits for portable technique. Pacemaker noted in satisfactory position. The lung dia are clear without acute consolidation, effusion, or pneumothorax. Skeletal structures are intact. Impression: No acute cardiopulmonary process appreciated. Electronically Signed by Abhishek Hilton MD 09/22/2019 10:53 P
[2019-09-23 02:44] LABS: CK-MB VALUE MASS 1.8 NG/ML (<3.6); CPK CREATINE PHOSPHOKINASE 108 U/L (39-308); MB/CK RELATIVE INDEX 1.67 (< OR =4); TROPONIN I < 0.02 NG/ML (< 0.10)
[2019-09-23 03:45] VITALS: BP 131/77
--- NOTE | 2019-09-23 06:56 | ECGEPIP ---
[facility] - ED Test Date: 2019-09-23 Pat Name: NOMI DASILVA Department: Room: - Gender: Male Digital Assistant: MATTHEW : 1940 Requested By: CAMMY Pennington Order Number: [id number] Reading MD: Leon Cordon Measurements Intervals [place] Rate: 60 P: 110 [place]: 348 QRS: -39 QRSD: 155 T: 20 QT: 432 QTc: 432 Interpretive Statements ELECTRONIC ATRIAL PACEMAKER LEFT AXIS DEVIATION RIGHT BUNDLE BRANCH BLOCK SIMILAR TO 09/22/19 Electronically Signed on 09-23-2019 6:56:32 EST by Leon Cordon
--- NOTE | 2019-09-24 12:51 | ED PDOC ---
Post-Departure Follow-Up dr miller faxed formal report of cta chest for fu Marky Coleman MD Sep 24, 2019 12:51
== END 2019-09-23 04:40 | disposition home or self-care (01) ==
LOC: M ED 20:17
DX: R07.9 Chest pain, unspecified (principal); I45.10 Unspecified right bundle-branch block; E04.1 Nontoxic single thyroid nodule; K31.89 Other diseases of stomach and duodenum; I11.0 Hypertensive heart disease with heart failure; E78.5 Hyperlipidemia, unspecified; M13.80 Other specified arthritis, unspecified site; G47.30 Sleep apnea, unspecified; Z95.0 Presence of cardiac pacemaker; Z88.6 Allergy status to analgesic agent; Z88.8 Allergy status to other drugs, medicaments and biological substances; Z79.82 Long term (current) use of aspirin; Z79.890 Hormone replacement therapy; Z79.899 Other long term (current) drug therapy
CPT/HCPCS: 36415; 71045; 71275; 80048; 80076; 82550; 82553; 83735; 84439; 84443; 84484; 85025; 93005; 93041; 94760; 99285; Q9967

== ENCOUNTER → 2019-10-07 | Outpatient (REF) | payer MEDICARE, OTHER ==
[~2019-10-07] MED LIST changes: +CALC600T60 PO; +FLUT1BLS4; +GLUC100016 PO; +MULTCAP PO; +OCUVTAB PO; +PRAV10TA3; +TAMS1CAP17
[2019-10-07 16:41] LABS: TOTAL PROTEIN,RANDOM URINE 11.3 MG/DL (0.0-12.0); URINE TOTAL PROTEIN 11.3 MG/DL (0-12)
[2019-10-09 22:56] LABS: TOTAL PROTEIN 24 HOUR URINE 203.4 MG/24HR (50-150); TOTAL VOLUME, URINE 1800 ML
== END ==
LOC: M LAB REF 15:48
PROVIDERS: ATTEND Internal Medicine Hematology & Oncology
DX: E85.81 Light chain (AL) amyloidosis (principal)

== ENCOUNTER → 2019-10-17 | Outpatient (REF) | payer MEDICARE, OTHER ==
[~2019-10-17] MED LIST changes: +DEXT350P PO; -FIBEPOW PO
[2019-10-17 18:23] LABS: APPEARANCE, URINE CLEAR (CLEAR); BACTERIA, URINE AUTO NEGATIVE (NEGATIVE); BILIRUBIN, URINE AUTO NEGATIVE (NEGATIVE); BLOOD, URINE BLOOD NEGATIVE (NEGATIVE); COLOR, URINE YELLOW (YELLOW); GLUCOSE, URINE (UA) AUTO NEGATIVE (NEGATIVE); KETONE, URINE AUTO NEGATIVE (NEGATIVE); LEUKOCYTE ESTERASE, URINE AUTO NEGATIVE (NEGATIVE); NITRITE, URINE AUTO NEGATIVE (NEGATIVE); PROTEIN, URINE AUTO NEGATIVE (NEGATIVE); RBC, URINE AUTO 2 /HPF (0-3); SPECIFIC GRAVITY URINE AUTO 1.012 (1.002-1.035); SQUAMOUS EPITHELIAL CELL UR AU 0 /HPF (0-6); UROBILINOGEN, URINE AUTO 0.2 mg/dL (0.0-2.0); WBC, URINE AUTO 2 /HPF (0-3)
== END ==
LOC: M SFHCPLAZ 17:11
PROVIDERS: ATTEND Nurse Practitioner Women's Health
DX: N32.89 Other specified disorders of bladder (principal); R35.0 Frequency of micturition
CPT/HCPCS: 51798; G0463

== ENCOUNTER → 2019-10-21 | Outpatient (REF) | payer MEDICARE, OTHER ==
[~2019-10-21] MED LIST changes: -DEXT350P PO; +FIBEPOW PO
== END ==
LOC: M SFHCADAM 08:05
PROVIDERS: ATTEND Physician Assistant
DX: Z53.9 Procedure and treatment not carried out, unspecified reason (principal); D72.820 Lymphocytosis (symptomatic); R53.82 Chronic fatigue, unspecified; R63.4 Abnormal weight loss; Z12.5 Encounter for screening for malignant neoplasm of prostate; E29.1 Testicular hypofunction

== ENCOUNTER → 2019-11-14 | Outpatient (REF) | payer MEDICARE, OTHER ==
[~2019-11-14] MED LIST changes: +DEXT350P PO; -FIBEPOW PO
== END ==
LOC: M LAB REF 13:33
PROVIDERS: ATTEND Internal Medicine Endocrinology, Diabetes & Metabolism
DX: E04.1 Nontoxic single thyroid nodule (principal)

== ENCOUNTER → 2019-11-18 | Outpatient (CLI) | payer MEDICARE, OTHER ==
[2019-11-18 13:43] LABS: BASO # 0.1 10^3/uL (0.0-0.2); BASO % 1.2 % (0.0-1.0); EOS # 0.2 10^3/uL (0.0-0.5); EOS % 3.5 % (0.0-3.0); HEMATOCRIT 40.7 % (42.0-52.0); HEMOGLOBIN 13.3 g/dl (13.5-17.5); LYMPH # 2.1 10^3/uL (1.5-5.0); LYMPH % 41.7 % (24.0-44.0); MEAN CORPUSCULAR HEMOGLOBIN 29.4 pg (27.0-33.0); MEAN CORPUSCULAR HGB CONC 32.7 g/dl (32.0-36.5); MONO # 0.6 10^3/uL (0.0-0.8); MONO % 12.1 % (0.0-5.0); NEUTROPHILS # 2.1 10^3/uL (1.5-8.5); NEUTROPHILS % 41.3 % (36.0-66.0); PLATELET COUNT, AUTOMATED 222 10^3/uL (150-450); RED BLOOD COUNT 4.52 10^6/uL (4.30-6.10); WHITE BLOOD COUNT 5.1 10^3/uL (4.0-10.0)
[2019-11-18 14:02] LABS: ALBUMIN 3.5 GM/DL (3.2-5.2); ALT/SGPT 16 U/L (12-78); BILIRUBIN,TOTAL 1.5 MG/DL (0.2-1.0); BLOOD UREA NITROGEN 17 MG/DL (7-18); CALCIUM LEVEL 8.7 MG/DL (8.8-10.2); CARBON DIOXIDE LEVEL 31 MEQ/L (21-32); CHLORIDE LEVEL 108 MEQ/L (98-107); CHOLESTEROL LEVEL 181 MG/DL (<200); CHOLESTEROL RISK RATIO 3.415 (<5); CREATININE FOR GFR 0.87 MG/DL (0.70-1.30); FREE T4 0.97 NG/DL (0.76-1.46); GLOMERULAR FILTRATION RATE > 60.0 (>42); GLUCOSE, FASTING 94 MG/DL (70-100); HDL CHOLESTEROL 53 MG/DL (>40); LDL CHOLESTEROL 113 MG/DL (<100); NON-HDL-C 128 MG/DL; POTASSIUM SERUM 4.6 MEQ/L (3.5-5.1); SODIUM LEVEL 141 MEQ/L (136-145); TESTOSTERONE 380 NG/DL (241-827); TOTAL PROTEIN 6.4 GM/DL (6.4-8.2); TRIGLYCERIDES LEVEL 76 MG/DL (<150)
== END ==
LOC: M WUC 09:02
PROVIDERS: ATTEND Family Medicine
DX: R53.82 Chronic fatigue, unspecified (principal); D72.820 Lymphocytosis (symptomatic); E78.2 Mixed hyperlipidemia; Z12.5 Encounter for screening for malignant neoplasm of prostate; R63.4 Abnormal weight loss
CPT/HCPCS: 36415; 80053; 80061; 84403; 84439; 84443; 85025; G0103

== ENCOUNTER → 2020-06-09 | Outpatient (CLI) | payer MEDICARE, OTHER ==
[~2020-06-09] MED LIST changes: +MAGN1CAP PO
--- NOTE | 2020-06-19 08:19 | REP ---
BILATERAL LOWER EXTREMITY ARTERIAL DOPPLER ULTRASOUND HISTORY: Bilateral leg pain. T-cell large granular lymphocytic leukemia. Pain with numbness. FINDINGS: Ankle-brachial indices could not be obtained due to noncompressible vessels. Mild intimal thickening and plaquing is observed. Normal triphasic and biphasic waveforms are observed through both lower extremities arterial tree. No high grade stenosis is seen. Right lower extremity arterial Doppler velocity chart: Right CVA PSV 110 cm/s. Profunda 63. Proximal SFA 105. Mid SFA 72. Distal SFA 95. Popliteal 58. Proximal LULA 53. Tibioperoneal trunk 72. Proximal INBOUND SALES ADVISOR 56. Distal INBOUND SALES ADVISOR 94. Distal LULA 80. Left lower extremity arterial Doppler velocity chart: Left CVA PSV 91 cm/s. Profunda 65. Proximal SFA 98. Mid SFA 66. Distal SFA 58. Popliteal 57. Proximal LULA 71. Tibioperoneal trunk 70. Proximal INBOUND SALES ADVISOR 59. Distal INBOUND SALES ADVISOR 60. Distal LULA 75. MTDD
== END ==
LOC: M RAD 08:42
PROVIDERS: ATTEND Internal Medicine Medical Oncology
DX: M79.604 Pain in right leg (principal); M79.605 Pain in left leg; R09.89 Other specified symptoms and signs involving the circulatory and respiratory systems

== ENCOUNTER → 2020-07-30 | Outpatient (REF) | payer MEDICARE, OTHER ==
[2020-07-30 13:48] LABS: FREE T4 1.05 NG/DL (0.76-1.46); THYROID STIMULATING HORMONE 0.701 uIU/ML (0.358-3.740)
== END ==
LOC: M SFHCADAM 08:18
PROVIDERS: ATTEND Family Medicine
DX: E78.2 Mixed hyperlipidemia (principal); I48.0 Paroxysmal atrial fibrillation; Z12.5 Encounter for screening for malignant neoplasm of prostate
CPT/HCPCS: 84439; 84443; G0103

== ENCOUNTER → 2020-09-24 | Outpatient (REF) | payer MEDICARE, OTHER ==
[2020-09-24 13:29] LABS: BASO # 0.1 10^3/uL (0.0-0.2); BASO % 1.3 % (0.0-1.0); EOS # 0.2 10^3/uL (0.0-0.5); EOS % 3.4 % (0.0-3.0); HEMATOCRIT 43.1 % (42.0-52.0); HEMOGLOBIN 13.7 g/dl (13.5-17.5); LYMPH # 2.1 10^3/uL (1.5-5.0); LYMPH % 38.8 % (24.0-44.0); MEAN CORPUSCULAR HEMOGLOBIN 28.5 pg (27.0-33.0); MEAN CORPUSCULAR HGB CONC 31.8 g/dl (32.0-36.5); MEAN CORPUSCULAR VOLUME 89.6 fl (80.0-96.0); MONO # 0.8 10^3/uL (0.0-0.8); MONO % 14.9 % (0.0-5.0); NEUTROPHILS # 2.2 10^3/uL (1.5-8.5); NEUTROPHILS % 41.6 % (36.0-66.0); PLATELET COUNT, AUTOMATED 247 10^3/uL (150-450); RED BLOOD COUNT 4.81 10^6/uL (4.30-6.10); WHITE BLOOD COUNT 5.3 10^3/uL (4.0-10.0)
[2020-09-24 14:05] LABS: ALBUMIN 3.8 GM/DL (3.2-5.2); ALT/SGPT 19 U/L (12-78); BILIRUBIN,TOTAL 1.2 MG/DL (0.2-1.0); BLOOD UREA NITROGEN 18 MG/DL (7-18); CALCIUM LEVEL 9.2 MG/DL (8.8-10.2); CARBON DIOXIDE LEVEL 35 MEQ/L (21-32); CHLORIDE LEVEL 104 MEQ/L (98-107); CHOLESTEROL LEVEL 205 MG/DL (<200); CHOLESTEROL RISK RATIO 3.727 (<5); GLOMERULAR FILTRATION RATE > 60.0 (>42); GLUCOSE, FASTING 103 MG/DL (70-100); HDL CHOLESTEROL 55 MG/DL (>40); LDL CHOLESTEROL 130 MG/DL (<100); NON-HDL-C 150 MG/DL; POTASSIUM SERUM 4.4 MEQ/L (3.5-5.1); SODIUM LEVEL 141 MEQ/L (136-145); TESTOSTERONE 470 NG/DL (241-827); TOTAL PROTEIN 6.4 GM/DL (6.4-8.2); TRIGLYCERIDES LEVEL 99 MG/DL (<150)
== END ==
LOC: M SFHCADAM 08:11
PROVIDERS: ATTEND Family Medicine
DX: C91.Z0 Other lymphoid leukemia not having achieved remission (principal); E78.2 Mixed hyperlipidemia; E29.1 Testicular hypofunction

== ENCOUNTER → 2021-02-08 | Outpatient (CLI) | payer MEDICARE, OTHER ==
[~2021-02-08] MED LIST changes: +COVI30VI IM; +FIBEPOW11 PO; +METR0.7533 TOP; +MULT-90 PO; +POTA8CAP10 PO; -PRAV10TA3; +PRAV10TA3 PO; -TAMS1CAP17; +TAMS1CAP17 PO; +XARE20TA PO
--- NOTE | 2021-02-08 10:39 | REP ---
INDICATION: STRAIN IN LEFT ROTATOR CUFF COMPARISON: None. TECHNIQUE: Internal rotation, external rotation, and Y view left shoulder. FINDINGS: Moderate osteoarthritic degenerative changes include spurring and subtle osteophyte formation at the acromioclavicular joint as well as calcification and blunting to the glenoid rim. The subacromial space is normal. No acute fracture or dislocation. IMPRESSION: Moderate osteoarthritic degenerative changes. <Electronically signed by Abhishek Hilton > 02/08/21 1330
== END ==
LOC: M ADAMS 10:19
PROVIDERS: ATTEND Family Medicine
DX: M19.012 Primary osteoarthritis, left shoulder (principal)
CPT/HCPCS: 73030; G0463

== ENCOUNTER → 2021-06-03 | Outpatient (CLI) | payer MEDICARE, OTHER ==
--- NOTE | 2021-06-03 14:20 | REP ---
INDICATION: RT ELBOW ARTHRITIS. COMPARISON: 01/14/2024 an outside institution TECHNIQUE: Four views FINDINGS: Since the last examination flattening of the radial head has developed. There is advanced elbow a joint space narrowing laterally as well as medially. There is marginal osteophytosis status quo. There is a smoothly marginated well corticated ossific density seen just lateral to the lateral humeral epicondylar region which is unchanged and consistent with an old healed fracture. There is no evidence of an acute fracture. IMPRESSION: Advanced chronic changes as described above. <Electronically signed by Gasper Huber > 06/03/21 [id number]
== END ==
LOC: M SOG 09:57
PROVIDERS: ATTEND Orthopaedic Surgery Sports Medicine
DX: M19.021 Primary osteoarthritis, right elbow (principal); M25.721 Osteophyte, right elbow

== ENCOUNTER → 2021-09-29 | Outpatient (REF) | payer MEDICARE, OTHER ==
[2021-09-29 12:52] LABS: BASO # 0.1 10^3/uL (0.0-0.2); BASO % 1.2 % (0.0-1.0); EOS # 0.1 10^3/uL (0.0-0.5); EOS % 1.8 % (0.0-3.0); HEMATOCRIT 44.4 % (42.0-52.0); HEMOGLOBIN 14.3 g/dl (13.5-17.5); LYMPH # 2.7 10^3/uL (1.5-5.0); LYMPH % 43.7 % (24.0-44.0); MEAN CORPUSCULAR HEMOGLOBIN 29.2 pg (27.0-33.0); MEAN CORPUSCULAR HGB CONC 32.2 g/dl (32.0-36.5); MEAN CORPUSCULAR VOLUME 90.8 fl (80.0-96.0); MONO # 0.8 10^3/uL (0.0-0.8); MONO % 12.7 % (2.0-8.0); NEUTROPHILS # 2.5 10^3/uL (1.5-8.5); NEUTROPHILS % 40.4 % (36.0-66.0); PLATELET COUNT, AUTOMATED 259 10^3/uL (150-450); RED BLOOD COUNT 4.89 10^6/uL (4.30-6.10); WHITE BLOOD COUNT 6.1 10^3/uL (4.0-10.0)
[2021-09-29 13:42] LABS: ALBUMIN 3.9 GM/DL (3.2-5.2); ALT/SGPT 17 U/L (12-78); BILIRUBIN,TOTAL 1.3 MG/DL (0.2-1.0); BLOOD UREA NITROGEN 12 MG/DL (7-18); CALCIUM LEVEL 9.2 MG/DL (8.8-10.2); CARBON DIOXIDE LEVEL 33 MEQ/L (21-32); CHLORIDE LEVEL 104 MEQ/L (98-107); CHOLESTEROL LEVEL 210 MG/DL (<200); CHOLESTEROL RISK RATIO 3.962 (<5); CREATININE FOR GFR 0.92 MG/DL (0.70-1.30); GLOMERULAR FILTRATION RATE > 60.0 (>35); GLUCOSE, FASTING 108 MG/DL (70-100); HDL CHOLESTEROL 53 MG/DL (>40); LDL CHOLESTEROL 130 MG/DL (<100); NON-HDL-C 157 MG/DL; POTASSIUM SERUM 4.2 MEQ/L (3.5-5.1); SODIUM LEVEL 141 MEQ/L (136-145); TOTAL PROTEIN 6.8 GM/DL (6.4-8.2); TRIGLYCERIDES LEVEL 136 MG/DL (<150)
[2021-09-29 13:49] LABS: TESTOSTERONE 448 NG/DL (241-827)
== END ==
LOC: M SFHCADAM 08:50
PROVIDERS: ATTEND Family Medicine
DX: C91.Z0 Other lymphoid leukemia not having achieved remission (principal); I11.0 Hypertensive heart disease with heart failure; E78.2 Mixed hyperlipidemia; E29.1 Testicular hypofunction

== ENCOUNTER → 2021-12-09 | Outpatient (CLI) | payer MEDICARE, OTHER | LOC: M SOG 13:38 | PROVIDERS: ATTEND Orthopaedic Surgery Sports Medicine | DX: M75.42 Impingement syndrome of left shoulder (principal) ==

== ENCOUNTER → 2022-04-13 | Outpatient (CLI) | payer MEDICARE, OTHER ==
[~2022-04-13] MED LIST changes: +MAGN500T12 PO
== END ==
LOC: M WUC 13:33
PROVIDERS: ATTEND Student in an Organized Health Care Education/Training Program
DX: S20.212A Contusion of left front wall of thorax, initial encounter (principal)

== ENCOUNTER → 2022-05-26 | Outpatient (REF) | payer MEDICARE, OTHER ==
[2022-05-26 13:23] LABS: HEMATOCRIT 43.6 % (42.0-52.0); HEMOGLOBIN 14.2 g/dl (13.5-17.5); MEAN CORPUSCULAR HEMOGLOBIN 29.3 pg (27.0-33.0); MEAN CORPUSCULAR HGB CONC 32.6 g/dl (32.0-36.5); MEAN CORPUSCULAR VOLUME 89.9 fl (80.0-96.0); PLATELET COUNT, AUTOMATED 265 10^3/uL (150-450); RED BLOOD COUNT 4.85 10^6/uL (4.30-6.10); WHITE BLOOD COUNT 5.4 10^3/uL (4.0-10.0)
[2022-05-26 14:01] LABS: ALBUMIN 3.6 GM/DL (3.2-5.2); ALT/SGPT 15 U/L (12-78); BILIRUBIN,TOTAL 1.4 MG/DL (0.2-1.0); BLOOD UREA NITROGEN 19 MG/DL (7-18); CALCIUM LEVEL 9.1 MG/DL (8.8-10.2); CARBON DIOXIDE LEVEL 30 MEQ/L (21-32); CHLORIDE LEVEL 105 MEQ/L (98-107); CHOLESTEROL LEVEL 206 MG/DL (<200); CHOLESTEROL RISK RATIO 3.886 (<5); CREATININE FOR GFR 0.83 MG/DL (0.70-1.30); FREE T4 1.06 NG/DL (0.76-1.46); GLOMERULAR FILTRATION RATE > 60.0 (>35); GLUCOSE, FASTING 102 MG/DL (70-100); HDL CHOLESTEROL 53 MG/DL (>40); LDL CHOLESTEROL 136 MG/DL (<100); NON-HDL-C 153 MG/DL; POTASSIUM SERUM 3.9 MEQ/L (3.5-5.1); SODIUM LEVEL 139 MEQ/L (136-145); TOTAL PROTEIN 6.8 GM/DL (6.4-8.2); TRIGLYCERIDES LEVEL 87 MG/DL (<150)
[2022-05-26 14:03] LABS: HEMOGLOBIN A1c 5.8 %
[2022-05-26 14:27] LABS: TESTOSTERONE 481 NG/DL (241-827)
== END ==
LOC: M SFHCADAM 08:41
PROVIDERS: ATTEND Family Medicine
DX: I48.0 Paroxysmal atrial fibrillation (principal); C91.Z0 Other lymphoid leukemia not having achieved remission; I50.32 Chronic diastolic (congestive) heart failure; E78.2 Mixed hyperlipidemia; R73.03 Prediabetes; E29.1 Testicular hypofunction

== ENCOUNTER → 2022-09-19 | Outpatient (CLI) | payer MEDICARE, OTHER ==
[~2022-09-19] MED LIST changes: +METR0.7526 TOP; -METR0.7533 TOP; +OCUV1CAP4 PO
== END ==
LOC: M LABSMTC 11:22
PROVIDERS: ATTEND Anesthesiology
DX: Z01.818 Encounter for other preprocedural examination (principal)

== ENCOUNTER 2022-09-21 12:51 | Day surgery (SDC) | payer MEDICARE, OTHER ==
[~2022-09-21] VITALS: Ht 175.3 cm; Wt 102.0 kg
[~2022-09-21 12:51] MED LIST changes: +ceFAZolin SOD 2 GM in IV 1 EA IV ONE
[2022-09-21] MEDS ORDERED: LIDOCAINE 1% SDV 30ML VIAL As Ordered ONE (12:57)
[2022-09-21] MEDS ORDERED: LR 1,000 ML IV SCH (13:20)
[2022-09-21] MEDS ORDERED: propofoL 200 MG/20 ML VIAL As Ordered ONE ×2 (13:28→14:32)
[2022-09-21] MEDS ORDERED: fentaNYL 100 MCG/2 ML INJECTION As Ordered ONE (14:26)
[2022-09-21] MEDS ORDERED: ACETAMINOPHEN 1000MG 100ML IV BAG As Ordered ONE (14:39)
[2022-09-21] MEDS: MUPIROCIN 2% OINT 22 GM TUBE As Ordered ONE ×2 (15:02→15:27)
[2022-09-21 16:20] VITALS: BP 141/76
== END 2022-09-21 16:35 | disposition home or self-care (01) ==
LOC: M SDC 12:51
PROVIDERS: ATTEND Internal Medicine Cardiovascular Disease
DX: I49.5 Sick sinus syndrome (principal); I48.91 Unspecified atrial fibrillation; Z45.010 Encounter for checking and testing of cardiac pacemaker pulse generator [battery]; G47.33 Obstructive sleep apnea (adult) (pediatric); I25.10 Atherosclerotic heart disease of native coronary artery without angina pectoris; I73.9 Peripheral vascular disease, unspecified; K57.92 Diverticulitis of intestine, part unspecified, without perforation or abscess without bleeding; K21.9 Gastro-esophageal reflux disease without esophagitis; J45.909 Unspecified asthma, uncomplicated; Z79.899 Other long term (current) drug therapy; E05.00 Thyrotoxicosis with diffuse goiter without thyrotoxic crisis or storm; K90.9 Intestinal malabsorption, unspecified; N40.0 Benign prostatic hyperplasia without lower urinary tract symptoms; Z79.51 Long term (current) use of inhaled steroids; Z79.01 Long term (current) use of anticoagulants; Z86.718 Personal history of other venous thrombosis and embolism
CPT/HCPCS: 33228; C1785

== ENCOUNTER → 2024-01-04 | Outpatient (REF) | payer MEDICARE, OTHER ==
[~2024-01-04] MED LIST changes: -ceFAZolin SOD 2 GM in IV 1 EA IV ONE
[2024-01-04 13:27] LABS: BASO # 0.1 10^3/uL (0.0-0.2); BASO % 1.4 % (0.0-1.0); EOS # 0.2 10^3/uL (0.0-0.5); EOS % 3.6 % (0.0-3.0); HEMATOCRIT 42.6 % (42.0-52.0); HEMOGLOBIN 13.9 g/dl (13.5-17.5); LYMPH # 2.1 10^3/uL (1.5-5.0); MEAN CORPUSCULAR HEMOGLOBIN 29.9 pg (27.0-33.0); MEAN CORPUSCULAR HGB CONC 32.6 g/dl (32.0-36.5); MEAN CORPUSCULAR VOLUME 91.6 fl (80.0-96.0); MONO # 0.7 10^3/uL (0.0-0.8); MONO % 14.2 % (2.0-8.0); NEUTROPHILS % 38.4 % (36.0-66.0); PLATELET COUNT, AUTOMATED 293 10^3/uL (150-450); RED BLOOD COUNT 4.65 10^6/uL (4.30-6.10); WHITE BLOOD COUNT 5.1 10^3/uL (4.0-10.0)
[2024-01-04 13:46] LABS: ALBUMIN 3.3 G/DL (3.2-5.2); ALKALINE PHOSPHATASE 98 U/L (46-116); ALT/SGPT 12 U/L (7.0-40); AST/SGOT 22 U/L (<34); BLOOD UREA NITROGEN 13 MG/DL (9-23); CALCIUM LEVEL 9.3 MG/DL (8.3-10.6); CARBON DIOXIDE LEVEL 31 MMOL/L (20-31); CHLORIDE LEVEL 106 MMOL/L (98-107); CHOLESTEROL LEVEL 173 MG/DL (<200); CHOLESTEROL RISK RATIO 3.76 (<5); CREATININE FOR GFR 0.88 MG/DL (0.70-1.30); GLOMERULAR FILTRATION RATE > 60.0 (>35); GLUCOSE, FASTING 98 MG/DL (74-106); HDL CHOLESTEROL 45.9 MG/DL (>40); LDL CHOLESTEROL 108.9 MG/DL (<100); NON-HDL-C 127.1 MG/DL; POTASSIUM SERUM 4.5 MMOL/L (3.5-5.1); PSA SCREENING 0.57 NG/ML (< 4.00); SODIUM LEVEL 140 MMOL/L (136-145); TOTAL PROTEIN 6.3 G/DL (5.7-8.2); TRIGLYCERIDES LEVEL 91 MG/DL (<150)
[2024-01-04 13:47] LABS: TESTOSTERONE 495 NG/DL (241-827)
[2024-01-04 13:55] LABS: HEMOGLOBIN A1c 5.4 % (4.0-6.0)
== END ==
LOC: M SFHCADAM 08:35
PROVIDERS: ATTEND Family Medicine
DX: C91.Z0 Other lymphoid leukemia not having achieved remission (principal); I11.0 Hypertensive heart disease with heart failure; E78.2 Mixed hyperlipidemia; R73.03 Prediabetes; E29.1 Testicular hypofunction; Z79.899 Other long term (current) drug therapy; Z12.5 Encounter for screening for malignant neoplasm of prostate
CPT/HCPCS: 80053; 80061; 83036; 84403; 85025; G0103

== ENCOUNTER → 2024-12-12 | Outpatient (REF) | payer MEDICARE, OTHER ==
[~2024-12-12] MED LIST changes: -ADV100INH INH; +ADVA1AER8 INH; -BAYE325T12 PO; +BAYE325T2 PO
[2024-12-12 14:37] LABS: BASO # 0.1 10^3/uL (0.0-0.2); BASO % 1.3 % (0.0-1.0); EOS # 0.3 10^3/uL (0.0-0.5); EOS % 4.6 % (0.0-3.0); HEMATOCRIT 43.9 % (42.0-52.0); HEMOGLOBIN 14.2 g/dl (13.5-17.5); LYMPH # 2.5 10^3/uL (1.5-5.0); LYMPH % 42.7 % (24.0-44.0); MEAN CORPUSCULAR HEMOGLOBIN 29.5 pg (27.0-33.0); MEAN CORPUSCULAR HGB CONC 32.3 g/dl (32.0-36.5); MEAN CORPUSCULAR VOLUME 91.1 fl (80.0-96.0); MONO # 0.8 10^3/uL (0.0-0.8); MONO % 13.3 % (2.0-8.0); NEUTROPHILS # 2.3 10^3/uL (1.5-8.5); NEUTROPHILS % 37.9 % (36.0-66.0); PLATELET COUNT, AUTOMATED 241 10^3/uL (150-450); RED BLOOD COUNT 4.82 10^6/uL (4.30-6.10); WHITE BLOOD COUNT 5.9 10^3/uL (4.0-10.0)
[2024-12-12 14:59] LABS: HEMOGLOBIN A1c 5.2 % (4.0-6.0)
[2024-12-12 15:05] LABS: ALBUMIN 3.6 G/DL (3.2-5.2); ALKALINE PHOSPHATASE 99 U/L (40-129); ALT/SGPT 14 U/L (7.0-40); AST/SGOT 20 U/L (<34); BILIRUBIN,TOTAL 1.7 MG/DL (0.3-1.2); BLOOD UREA NITROGEN 15 MG/DL (9-23); CARBON DIOXIDE LEVEL 33 MMOL/L (20-31); CHLORIDE LEVEL 103 MMOL/L (98-107); CHOLESTEROL LEVEL 192 MG/DL (<200); CHOLESTEROL RISK RATIO 3.52 (<5); CREATININE FOR GFR 0.84 MG/DL (0.70-1.30); GLOMERULAR FILTRATION RATE > 60.0 (>35); GLUCOSE, FASTING 99 MG/DL (74-106); HDL CHOLESTEROL 54.5 MG/DL (>40); LDL CHOLESTEROL 119.1 MG/DL (<100); NON-HDL-C 137.5 MG/DL; POTASSIUM SERUM 4.3 MMOL/L (3.5-5.1); SODIUM LEVEL 141 MMOL/L (136-145); TOTAL PROTEIN 6.5 G/DL (5.7-8.2); TRIGLYCERIDES LEVEL 92 MG/DL (<150)
[2024-12-12 15:10] LABS: TESTOSTERONE 559 NG/DL (241-827)
== END ==
LOC: M SFHCADAM 08:37
PROVIDERS: ATTEND Family Medicine
DX: C91.Z0 Other lymphoid leukemia not having achieved remission (principal); R73.03 Prediabetes; I50.32 Chronic diastolic (congestive) heart failure; I11.0 Hypertensive heart disease with heart failure; E78.2 Mixed hyperlipidemia; Z12.5 Encounter for screening for malignant neoplasm of prostate; E29.1 Testicular hypofunction
CPT/HCPCS: 80053; 80061; 83036; 83880; 84403; 85025; G0103

== ENCOUNTER → 2025-06-19 | Outpatient (REF) | payer MEDICARE, OTHER ==
[~2025-06-19] MED LIST changes: -PRAV10TA3 PO; +PRAV10TA43 PO
[2025-06-19 14:49] LABS: ALT/SGPT 16.0 U/L (7.0-40); AST/SGOT 31.0 U/L (<34); CALCIUM LEVEL 8.7 MG/DL (8.3-10.6); CARBON DIOXIDE LEVEL 32.0 MMOL/L (20-31); CHLORIDE LEVEL 104.0 MMOL/L (98-107); CREATININE FOR GFR 0.81 MG/DL (0.70-1.30); GLOMERULAR FILTRATION RATE 86.9 (>35); MAGNESIUM LEVEL 2.2 MG/DL (1.8-2.4); POTASSIUM SERUM 4.0 MMOL/L (3.5-5.1); SODIUM LEVEL 143.0 MMOL/L (136-145)
[2025-06-19 14:54] LABS: BASO # 0.1 10^3/uL (0.0-0.2); BASO % 1.7 % (0.0-1.0); EOS # 0.2 10^3/uL (0.0-0.5); EOS % 3.3 % (0.0-3.0); LYMPH # 2.2 10^3/uL (1.5-5.0); LYMPH % 46.4 % (24.0-44.0); MONO # 0.7 10^3/uL (0.0-0.8); MONO % 13.7 % (2.0-8.0); NEUTROPHILS # 1.7 10^3/uL (1.5-8.5); NEUTROPHILS % 34.7 % (36.0-66.0); PLATELET COUNT, AUTOMATED 265 10^3/uL (150-450)
== END ==
LOC: M SFHCADAM 08:13
PROVIDERS: ATTEND Family Medicine
DX: C91.Z0 Other lymphoid leukemia not having achieved remission (principal); I48.0 Paroxysmal atrial fibrillation; E80.4 Gilbert syndrome